=== PATIENT | female | born 1985 | race Caucasian/White ===

== ENCOUNTER 2017-07-23 05:25 | Emergency (ER) | payer OTHER ==
[~2017-07-23] VITALS: Ht 162.6 cm; Wt 68.0 kg
[2017-07-23 05:31] VITALS: BP 137/81
[2017-07-23] MEDS ORDERED: ZOLOFT25 MG PO (05:32)
[2017-07-23] MEDS ORDERED: BACTRIM DS TAB1 EACH PO (06:01)
[2017-07-23] MEDS ORDERED: KEFLEX500 M1 PO (06:01)
== END 2017-07-23 06:11 | disposition home or self-care (01) ==
LOC: M.ERS 05:25
DX: M27.2 Inflammatory conditions of jaws (principal); F17.210 Nicotine dependence, cigarettes, uncomplicated; Z90.49 Acquired absence of other specified parts of digestive tract